=== PATIENT | male | born 1955 | race Caucasian/White ===

== ENCOUNTER → 2025-03-26 | Outpatient (CLI) | payer MEDICARE, SELFPAY ==
--- NOTE | 2025-03-26 08:22 | CT_ITS ---
PROCEDURE: SINUS/FACIAL BONE REASON FOR EXAM: SINUSITIS TECHNIQUE: CT of the paranasal sinuses without contrast. Coronal and Sagittal reconstruction series were provided. One or more dose reduction techniques were used (e.g., Automated exposure control, adjustment of the mA and/or kV according to patient size, use of iterative reconstruction technique). COMPARISON: None available FINDINGS: The paranasal sinuses appear well formed without wall thickening or sclerosis. The frontal sinuses appear clear. The frontoethmoidal recesses appear clear. Ethmoid air cells appear clear. Very small mucous retention cyst upper right sphenoid sinus. The sphenoid sinuses otherwise appear clear. Bilateral sphenoethmoidal recesses appear clear. Bilateral antral windows are suggested. Thin synechia/membrane seen at the upper right and left maxillary sinuses for example axial 104. Very small possible mucous retention cyst right maxillary sinus. Lobular soft tissue inferior right maxillary sinus may represent combination of mucoperiosteal thickening and mucous retention cyst. Very small mucous retention cyst left maxillary sinus. No air-fluid levels. Defect at the nasal septum for example axial 90 and coronal 34. Rightward deviation of the upper anterior nasal septum. The turbinates appear within limits. The orbits appear within limits. Infratemporal fossa fat appears preserved. Pterygopalatine foramen appear symmetric. Symmetric appearance of bilateral fossa of Rosenmuller. TMJs appear normally located. [place] artifact related to dental amalgam. No periapical lucency identified. The mastoids, middle ear and internal auditory canals appear within limits. Incidental note of asymmetric left-sided upper cervical multilevel facet hypertrophic degenerative change with some associated left-sided foraminal narrowing. Bilateral carotid calcific plaque formation. Bilateral parasellar carotid calcification. CT/Sinus/Facial Bone IMPRESSION: Mild paranasal sinus disease as detailed above. Reading Location: [id number]
== END | disposition home or self-care (01) ==
PROVIDERS: PCP Family Medicine; Referring Provider Otolaryngology; Visit Provider Otolaryngology
DX: J32.8 Other chronic sinusitis (principal)
CPT/HCPCS: 70486